=== PATIENT | male | born 1955 | race Caucasian/White ===

== ENCOUNTER 2022-10-19 07:37 | Outpatient (REF) | payer MEDICARE, SELFPAY ==
[2022-10-19 11:17] LABS: MANUAL DIFF FLAG NO
[2022-10-19 11:47] LABS: Basophils Percent Auto 0.5 % (0-2); Eosinophils Absolute Auto 0.2 X10*3/uL (0.0-0.4); Eosinophils Percent Auto 2.8 % (0-4); Hematocrit 41.6 % (42.0-52.0); Hemoglobin 13.6 g/dl (14.0-18.0); Imm Gran Abs Auto 0.05 X10*3/uL (0.00-0.03); Imm Gran Pct Auto 0.8 % (0.0-0.4); Lymphocytes Absolute Auto 1.7 X10*3/uL (1.2-4.9); Lymphocytes Percent Auto 26.4 % (20-40); Mean Corpuscular HGB Conc 32.7 g/dl (31.0-36.0); Mean Corpuscular Hemoglobin 29.2 pg (27.0-33.0); Mean Corpuscular Volume 89.5 fL (80.0-98.0); Mean Platelet Volume 10.6 fL (9.4-12.4); Monocytes Absolute Auto 0.5 X10*3/uL (0.1-1.2); Monocytes Percent Auto 8.2 % (2-11); Neutrophils Percent Auto 61.3 % (45-73); Platelet Count 223 X10*3/uL (160-400); Red Blood Count 4.65 X10*6/uL (4.60-5.80); Red Cell Distribution Width 13.7 % (11.0-16.0); White Blood Count 6.5 X10*3/uL (4.8-10.8)
[2022-10-19 12:36] LABS: Alanine Aminotransferase 15 U/L (0-40); Albumin Level 3.8 g/dL (3.5-5.0); Alkaline Phosphatase 12 U/L (39-117); Anion Gap 10 (12-20); Aspartate Amino Transferase 18 U/L (5-37); Bilirubin Total 1.1 mg/dL (0.0-1.0); Blood Urea Nitrogen 26 mg/dL (9-16); Calcium 8.8 mg/dL (8.4-10.2); Carbon Dioxide 29 mmol/L (22-29); Chloride 105 mmol/L (96-108); Cholesterol 208 mg/dL; Estimated Glomerular Filt Rate 59; Glucose Fasting 113 mg/dL (60-99); HDL Cholesterol 40 mg/dL; LDL Cholesterol Calculated 145 mg/dl; Potassium 4.3 mmol/L (3.3-5.1); Sodium 140 mmol/L (135-145); Total Protein 6.3 g/dL (6.5-8.0); Triglycerides 115 mg/dL
[2022-10-19 13:27] LABS: Uric Acid 9.4 mg/dL (3.4-7.0)
== END 2022-10-19 07:38 | disposition home or self-care (01) ==
LOC: HO.MANLDS 07:37
PROVIDERS: Visit Provider Physician Assistant
DX: M10.011 Idiopathic gout, right shoulder (principal); I10 Essential (primary) hypertension
CPT/HCPCS: 36415; 80053; 80061; 84550; 85025

== ENCOUNTER 2024-05-09 11:25 | Outpatient (REF) | payer MEDICARE, SELFPAY ==
[2024-05-09 14:06] LABS: Alanine Aminotransferase 21 U/L (0-40); Albumin Level 3.8 g/dL (3.5-5.0); Alkaline Phosphatase 19 U/L (39-117); Anion Gap 12 (12-20); Aspartate Amino Transferase 25 U/L (5-37); Bilirubin Total 1.6 mg/dL (0.0-1.0); Blood Urea Nitrogen 18 mg/dL (9-16); Carbon Dioxide 30 mmol/L (22-29); Chloride 104 mmol/L (96-108); Estimated Glomerular Filt Rate > 60; Glucose Random 99 mg/dL (60-115); Potassium 4.5 mmol/L (3.3-5.1); Sodium 141 mmol/L (135-145); Total Protein 6.8 g/dL (6.5-8.0); Uric Acid 8.2 mg/dL (3.4-7.0)
== END 2024-05-09 11:26 | disposition home or self-care (01) ==
LOC: HO.MANLDS 11:25
PROVIDERS: Visit Provider Physician Assistant
DX: M1A.0720 Idiopathic chronic gout, left ankle and foot, without tophus (tophi) (principal)
CPT/HCPCS: 36415; 80053; 84550

== ENCOUNTER 2024-10-03 10:06 | Outpatient (REF) | payer MEDICARE, SELFPAY ==
--- OUTSIDE RECORDS SUMMARY | 2024-10-03 11:52 | XMS_ITS | Continuity of Care Document ---
Author Name [facility] Organization [facility] Care Team Providers Care Can Intake Worker Name Role Phone [facility] Unavailable Unavailable Problems Combined list of problems from Department of Defense and Veterans Affairs facilities. It does not include entries that were removed or entered in error. Problem Status Onset Date Problem Type Date of Resolution Comments Source Eczema Active Condition [facility] Hearing loss Active [facility] [place] [facility] Hypertension Active Condition [facility] [place] [facility] Mor[facility] obesity Active Condition [facility] [place] [facility] Obstructive sleep apnea of adult Active Condition [facility] [place] [facility] Paroxysmal atrial fibrillation Active Condition December 20, 2017 Entered By: CLAUDIA BRITO Comment: on rate control, [facility] [place] [facility] Diagnosis: ICD-10-CM Z46.1 Encounter for fitting and adjustment of hearing aid Active Diagnosis [facility] [place] [facility] Medications Combined list of outpatient medications from Department of Defense and Veterans Affairs facilities.Medications provided include 1) outpatient medications from the last 15 months, and 2) patient-reported medications. Medication Details Route Status Patient Instructions Prescription Expires Prescription Number Last Dispense Date Ordering Provider Order Date Order Qty Source LISINOPRIL 10MG TAB TAKE ONE TABLET BY MOUTH DAILY ORAL ACTIVE Monique BRITO ICOLE 2015 [facility] [place] [facility] METOPROLOL TARTRATE 25MG TAB TAKE ONE TABLET BY MOUTH TWICE DAILY ORAL ACTIVE Monique BRITO ICOLE 2017 [facility] [place] [facility] Immunizations Combined list of available immunizations from the Department of Defense and Veterans Affairs facilities. Immunization Series Date Given Administered By Site Reaction Lot Number CVX Code Drug Apron Operator Status Comments Source INFLUENZA, SEASONAL, INJECTABLE 2017 141 complet ed [facility] [place] [facility] INFLUENZA, SEASONAL, INJECTABLE 2016 141 complet ed Site: Left Deltoid [facility] TDAP 2016 115 complet ed Site: Right Deltoid [facility] FLU,3 YRS (HISTORICAL) 2015 88 complet ed Site: Right Deltoid [facility] [place] [facility] Encounters Combined list of: 1) Encounters from Department of Veterans Affairs facilities going backup to the last 18 months, not all VA inpatient encounters are included; 2) Encounters from the Department of Defense facilities going backup to 280 months. Location Location Details Encounter Type Encounter Number Reason For Visit Attending Provider ADM Date DC Date Status Disposition Source [facility] HEARING AID FITTING/CH ECKING [id number] Diagnos is: ICD-10- CM Z46.1 Encount er for fitting and adjustm ent of hearing aid Stefan DAMON 04/19 [facility] [place] [facility] Social History Combined list of available smoking, tobacco, and other social history from Department of Defense and Veterans Affairs facilities. Social History Type Response Date Comment Sourc e Tobacco smoking status NHIS VA-TOBACCO QUIT 5 TO < 15 YRS 01/11/2019 [facility] [place] [facility] History of tobacco use AR-TOBACCO FORMER USER 01/11/2019 [facility] [place] [facility] History of tobacco use QUIT TOBACCO USE > 7 YEARS AGO 12/20/2017 [facility] [place] [facility] History of tobacco use QUIT TOBACCO USE 1-7 YEARS AGO 04/26/2016 [facility] [place] [facility]
--- OUTSIDE RECORDS SUMMARY | 2024-10-03 11:52 | XMS_ITS ---
Author Name [facility] Address [address] [place] [id number] Care Team Providers Care Video Effects Editor Name Role Phone ARNALDO JAUREGUI Primary Care Provider Unavailab le Insurance Providers: All historical and current Section Date Range: From patient's date of to the date document was created. This section includes the names of all active insurance providers for the patient. Insurance Provider Type of Coverage Plan Name Start of Policy Coverage End of Policy Coverage Group Number Member ID Insurance Provider's Telephone Number Policy Wynn's Name Patient's Relationship to Policy Wynn [facility] MEDICARE [facility] MEDEX CORE Apr 01, 2021 [id number] DAMASO SCRUGGS PATIENT MEDICARE (WNR) MEDICARE (M) PART A Apr 01, 2021 PART A [id number] DAMASO SCRUGGS PATIENT MEDICARE (WNR) MEDICARE (M) PART B Apr 01, 2021 PART B [id number] DAMASO SCRUGGS PATIENT Selected Encounter This section includes the information on record at OR for the Encounter. Date/Time Encounter Type Encounter Description Reason Provider Source Apr 19, 2024 08:00 AM HEARING AID FITTING/CHECKIN G AUDIOLOGY ICD-10-CM Z46.1 Encounter for fitting and adjustment of hearing aid GWENDOLYN DAMON Encounter Template Text not used by [facility] Assessments - Encounter Diagnoses This section includes the primary and secondary diagnoses documented for the Encounter. Date/Time Primary/Secondary Diagnosis Diagnosis Name Provider Source Apr 19, 2024 08:10 AM PRIMARY Encounter for fitting and adjustment of hearing aid GWENDOLYN DAMON [facility] Apr 19, 2024 08:10 AM SECONDARY Sensorineural hearing loss, bilateral GWENDOLYN DAMON [facility] Social History: Smoking Status (Most current) and Tobacco Use (All prior to encounter date) This section includes the most current, and the historical, smoking and tobacco- related health factors from the OR facility where the Encounter took place. Current Smoking Status This section includes the most current smoking, or tobacco-related health factor, from the OR facility where the Encounter took place. Date/Time Current Smoking Status Comment Facil ity Jan 11, 2019 09:58 AM OR-TOBACCO QUIT 5 TO < 15 YRS [facility] Tobacco Use History This section includes a history of the smoking, or tobacco-related health factors, that were collected on or before the date of the Encounter. The data comes from the [place] facility where the Encounter took place. Date/Time Smoking Status/Tobacco Use Comment F acility Jan 11, 2019 09:58 AM OR-TOBACCO QUIT 5 TO < 15 YRS [facility] December 20, 2017 01:12 PM QUIT TOBACCO USE > 7 YEARS AGO [facility] December 20, 2017 01:12 PM V1-QUIT TOBACCO US E > 1 YEAR AGO [facility] Apr 26, 2016 11:01 AM QUIT TOBACCO USE 1 -7 YEARS AGO [facility] Encounter Notes: All associated encounter notes This section contains the clinical notes associated to the Encounter. Date/Time Encounter Note(s) Provider Source Apr 19, 2024 07:42 AM AUDIOLOGY E & M NO TE: [facility] [employer] [facility] TITLE: AUDIOLOGY CLINIC STANDARD TITLE: AUDIOLOGY E & M NOTE DATE OF NOTE: APR 19, 2024@07:42 ENTRY DATE: APR 19, 2024@07:42:20 AUTHOR: GWENDOLYN DAMON EXP COSIGNER: URGENCY: STATUS: COMPLETED [place] has a history of bilateral sensorineural hearing loss. He was seen on 04-19-24 for hearing aid follow up regarding his Stefano BTEs. He reports they need maintenance and that the right may not be working. Attempt to connect to WILL failed for the right, but was successful for the left. A firmware update is needed based on the left aid read out. Despite troubleshooting, the right aid would not connect and remained . Both aids were sent in for repair, will ship to [place] [facility]. He will use spare hearing aids in the meantime. /shayla/ Dora GREGORIO, [facility]-A STAFF PARTS TECHNICIAN Signed: 04/19/2024 08:12 GWENDOLYN DAMON [facility]
--- OUTSIDE RECORDS SUMMARY | 2024-10-03 11:52 | XMS_ITS | Data Portability ---
Author Organization [facility] Service Address [address] [place] [address] Assessment Encounter Date Assessment Date Assessment LastModified by Organization Details LastModified Time 10/26/2023 10/26/2023 The patient denies little pleasure in activities they find enjoyable, feeling depressed, difficulties sleeping, feeling tired or having little energy, change in appetite, feeling guilty, overwhelmed or unmotivated. The patient denies suicidal ideation, thoughts of hurting themselves or others. Their mood is appropriate, they show good judgement and clear understanding of the conversation. They are orientated to time, place and person. They are not expressing any concerning thoughts or actions that would need further investigation and treatment for mental health. The patient denies recent falls or recurrent falls. Denies instability, weakness, abnormal gait, or difficulties with movement. The patient wears correct, supportive shoes and is not otherwise severely visually impaired. The patient is full weight bearing and if using the assistance of a cane or walker feels supported and stable with the use of such devices. All medical conditions have been taken into account that may pose a risk for the patient for falls. Home janice, carpets and/or rugs do not pose a challenge for the patient. The patient has been educated about the use of vitamin D supplementation for bone health and prevention of hypotensive episodes that may increase risk for fall. All question and concerns were answered to the patient's satisfaction. [email or web address] Not available 10/26/2023 09:12:44 04/09/2024 04/09/2024 Patient agreed and verbally consents to this audio and video Telehealth appt via a secure platform [email or web address] Not available 04/09/2024 10:33:48 04/25/2024 04/25/2024 Patient agreed and verbally consents to this audio and video Telehealth appt via a secure platform [email or web address] Not available 04/25/2024 11:44:37 06/18/2024 06/18/2024 Patient agreed and verbally consents to this audio and video Telehealth appt via a secure platform [email or web address] Not available 06/18/2024 11:10:36 Plan of Treatment Reminders Order Date Submit Date Provider Last Modified By Organization Details Last Modified Time Details Appointments NEW PROBLEM 15 2024 09:45A M MEKA JENSEN Not available Not available Not available Lab CMP, serum or plasma 2024 025 [facility], [address] [place] [address], [id number], 10/03/2024 09:54:05 CBC w/ auto diff 2024 025 [facility], [address] [place] [address], [id number], 10/03/2024 09:54:05 magnesium , serum or plasma 2024 025 [facility], [address] [place] [address], [address], 10/03/2024 09:54:05 zinc, serum or plasma 2024 025 [facility], [address] [place] [address], [address], 10/03/2024 09:54:05 PTH (parathyr oid hormone), intact + calcium, serum or plasma 2024 025 [facility], [address] [place] [address], [address], 10/03/2024 09:54:05 ESR (erythroc yte sedimenta tion rate), blood 2024 025 [facility], [address] [place] [address], [address], 10/03/2024 09:54:05 C reactive protein, QN, serum or plasma 2024 025 [facility], [address] [place] [address], [address], 10/03/2024 09:54:05 CK (creatine kinase) isoenzyme s, serum 2024 025 [facility], [address] [place] [address], [address], 10/03/2024 09:54:05 uric acid, serum or plasma 2023 024 [facility], [address] [place] [address], [address], 04/25/2024 11:47:25 CMP, serum or plasma 2023 024 [facility], [address] [place] [address], [address], 05/10/2024 12:11:27 uric acid, serum or plasma 2023 024 [facility], [address] [place] [address], [address], 10/26/2023 09:11:21 Referral sleep medicine referral 2023 024 [facility], [address] [facility], [facility] [address], [place], [address], 06/19/2024 08:03:53 Procedures None recorded. Surgeries None recorded. Imaging XR, foot, 3 or more view 2024 025 [facility] Central Scheduling (Not Breast), [address] [facility], [place], [address], 10/03/2024 11:47:19 Medication Orders Zithromax Z-Benito 250 mg tablet 11/18/ 2024 03/05/2 025 [facility][id number], [address], [place], [id number], 10/03/2024 09:38:25 Medrol (Benito) 4 mg tablets in a dose pack 2023 025 [facility] #09232, [address] [place] [address], [id number], 10/03/2024 09:38:35 sildenafi l 100 mg tablet 2023 024 [facility] #55140, [address] [place] [address], [id number], 04/25/2024 11:48:05 amoxicill in 875 mg-potass ium clavulana te 125 mg tablet 2023 024 [facility] #[id number], [address] [place] [address], [id number], 04/25/2024 08:11:45 Patient TargetsNo targets recorded. Patient InstructionsNo instructions recorded. Reason for Referral Sleep Medicine Referral for Sleep apnea needs updated sleep study for new CPAP Referring Physician: Nieves Blancas, Internal Medicine, Encounter Date: 06/18/2024 Results Created Date Observation Date Name Description Value Unit Range Abnormal Flag Note LastModifiedBy Organization Detail LastModifiedTime 09/28/19 24 09/27/2023 XR, chest , 2 view No observ ation record ed. [email or web address] [address], [address], 09/28/2023 11:00:09 10/29/1910/28/2023 CT, chest , w/wo contr ast No observ ation record ed. [email or web address] [address], [address], 10/31/2023 08:22:42 Result Notes None recorded. Problems Name Problem SNOMED Code Status Onset Date Resolution Date Notes Provider Name and Address Organization Details Recorded Time Body mass index 30+ - obesity 557153022 [facility] Eczema 41110806 Active 2022 hands and feet MEKA JENSEN [address] [place], [address], [facility] 3 11:02:21 Polyp of colon 19502243 Active 2022 Arianna pires [facility] 3 11:27:55 Paroxysm al atrial fibrilla tion 830271148 [facility] 11:28:14 Sleep apnea 47731566 Active 2022 uses CPAP MEKA JENSEN [address] [place], [address], [facility] 3 11:03:12 Tinnitus 86698601 [facility] 11:28:39 Gout 57140923 Active 2022 right big toe MEKA JENSEN [address] [place], [address], [facility] 3 10:21:18 Essentia l hyperten matilde 64157237 Active 2022 MEKA JENSEN [address] [place], [address], [facility] 3 11:01:22 Tinnitus 85463719 Active 2022 MEKA JENSEN [address] [place], [address], [facility] 3 11:04:46 Panic attack 637904863 Active 2022 MEKA JENSEN [address] [place], [address], [facility] 3 09:25:44 Spasm 90697886 Active 2022 MEKA JENSEN [address] [place], [address], [facility] 3 09:29:32 Pain in right foot 96144525849 9107 Active 2022 MEKA JENSEN [address] [place], [address], [facility] 3 09:31:09 Pneumoni a 288162776 Completed 202308/22/2023 MEKA JENSEN [address] [place], [address], [facility] 4 10:35:48 Wheezing 66547246 Active 2023 Long Bazzi DO [address] [place], [address], [facility] 4 13:38:23 Pneumoni a 700434076 Active 2023 MEKA JENSEN [address] [place], [address], [facility] 4 10:35:48 Lung mass 482536746 Active 2023 MEKA JENSEN [address] [place], [address], [facility] 4 11:00:31 Chronic gouty arthriti s 73191869 Active 2023 MEKA JENSEN [address] [place], [address], [facility] 4 09:24:39 Contact dermatit is caused by urushiol from [facility] celso 091361412 Active 2023 MEKA JENSEN [address] [place], [address], [facility] 4 15:47:50 Acute bacteria l sinusiti s 39172005 Active 2023 MEKA JENSEN [address] [place], [address], [facility] 4 10:33:59 Erectile dysfunct ion 425406091 Active 2023 MEKA JENSEN [address] [place], [address], [facility] 4 11:46:33 Acute sinusiti s 89315866 Active 2023 MEKA JENSEN [address] [place], [address], [facility] 4 11:09:22 Pain in right heel 78455426531 [address]174 Active 2024 MEKA JENSEN [address] [place], [address], [facility] 5 09:49:45 Strain of hamstrin g muscle 28195182833 4 Active 2024 MEKA JENSEN [address] [place], [address], [facility] 5 09:50:02 Problem Notes None recorded. Procedures Surgical History Date Name Laterality Status Provider Name and Address Organization Details Recorded Time Hand tendon/muscle transfer completed MEKA JENSEN [address] [place], [address], [facility] 10/07/2022 11:10:10 Cholecystectomy completed MEKA HERNANDES [address] [place], [address], [facility] 10/07/2022 11:10:21 Imaging Results Imaging Date Name Status LastModified by Organiz ation Details LastModified Time 09/27/2023 [facility] [address], [address], 09/28/2023 11:00:09 10/28/2023 CT, chest, w/wo contrast completed memo [address], [place], [address], 10/31/2023 08:22:42 Procedure Notes None recorded. Medical Equipment None Reported. Allergies No known drug allergies Medications Name Sig Start Date Stop Date Status Note LastModified by Organization Details LastModified Time atorvastati n 40 mg tablet TAKE 1 TABLET DAILY active Not Available Not Available No t Available prednisone 10 mg tablet 50 mg x 2 days40 mg x 2 days30 mg x 2 days20 mg x 2 days10 mg x 2 days 04/25 completed Not Available Not Available Not Available albuterol sulfate 2.5 mg/3 mL (0.083 %) solution for nebulizatio n USE 3 ML VIA NEBULIZER THREE TIMES DAILY NEEDED active Not Available Not Available No t Available azithromyci n 250 mg tablet TAKE 2 TABLETS (500 MG) BY ORAL ROUTE ONCE DAILY FOR 1 DAY THEN 1 TABLET (250 MG) BY ORAL ROUTE ONCE DAILY FOR 4 DAYS 10/03 completed Not Available Not Available Not Available cyanocobala min (vit B-12) 1,000 mcg tablet Take 1 tablet every day by oral route. active Not Available Not Available No t Available allopurinol 100 mg tablet 10/20 completed Not Available Not Available Not Available aspirin 81 mg tablet,hoda yed release Take 1 tablet every day by oral route. active Not Available Not Available No t Available sildenafil 100 mg tablet TAKE 1 TABLET BY MOUTH EVERY DAY FOR 8 DAYS active Not Available Not Available No t Available alprazolam 0.5 mg tablet Take 1 tablet every day by oral route for 14 days. 04/25 completed Not Available Not Available Not Available lisinopril 30 mg tablet TAKE 1 TABLET DAILY active Not Available Not Available No t Available codeine 10 mg-guaifene sin 100 mg/5 mL oral liquid TAKE 10 ML BY MOUTH EVERY 4 HOURS FOR 7 DAYS 09/06 completed Not Available Not Available Not Available allopurinol 300 mg tablet TAKE 1 TABLET DAILY 10/25 completed Not Available Not Available Not Available levofloxaci n 750 mg tablet TAKE 1 TABLET BY MOUTH EVERY DAY FOR 10 DAYS 09/06 completed Not Available Not Available Not Available methylpredn isolone 4 mg tablets in a dose pack Take 1 dose pk by oral route. 10/03 completed Not Available Not Available Not Available albuterol sulfate HFA 90 mcg/actuati on aerosol inhaler INHALE 2 PUFFS BY MOUTH EVERY 4 HOURS NEEDED active Not Available Not Available No t Available colchicine 0.6 mg tablet 10/20 completed Not Available Not Available Not Available amoxicillin 875 mg-sushant m clavulanate 125 mg tablet TAKE 1 TABLET BY MOUTH EVERY 12 HOURS FOR 10 DAYS 04/25 completed Not Available Not Available Not Available metoprolol tartrate 25 mg tablet TAKE 1 TABLET TWICE A DAY active Not Available Not Available No t Available [employer] System USE DIRECTED active Not Available Not Available No t Available allopurinol 200 mg tablet TAKE 1 TABLET BY MOUTH EVERY DAY 10/22 completed Not Available Not Available Not Available Vitals Date Recorded Body height Body mass index (BMI) Body weight Heart rate Oxygen saturation Oxygen saturation in Arterial blood by Pulse oximetry Systolic blood pressure Diastolic blood pressure Provider Name and Address Organization Details Last Updated DateTime 4 185.42 cm 39.1 kg/m2 164935. 34 g 52 /min 99 % 99 % 130 mm[Hg] 80 mm[Hg] Carolyn Taylor [facility] 4 08:57:58 Date Recorded Body height Body mass index (BMI) Body weight Heart rate Oxygen saturation Oxygen saturation in Arterial blood by Pulse oximetry Systolic blood pressure Diastolic blood pressure Provider Name and Address Organization Details Last Updated DateTime 5 185.42 cm 40.8 kg/m2 692326. 04 g 52 /min 99 % 99 % 138 mm[Hg] 84 mm[Hg] Ariel Smart [facility] 5 09:39:48 Social History Question Answer Notes LastModified by Organizat ion Details LastModified Time Tobacco Smoking Status Former Smoker Arianna pires [facility] 10/05/2022 11:29:04 Do You Have An Advance Directive? No Information not available 10/07/2022 What Is Your Level Of Alcohol Consumption? Moderate Depends On The Day (three Times A Week, Has Couple Beers) Information not available 10/07/2022 Are You Blind Or Do You Have Difficulty Seeing? No Information not available 10/07/2022 What Is Your Level Of Caffeine Consumption? Moderate Information not available 10/07/2022 In The 14 Days Before Symptom Onset, Have You Had Close Contact With A Laboratory-confi rmed COVID-19 While That Case Was Ill? No Information not available 10/07/2022 In The 14 Days Before Symptom Onset, Have You Had Close Contact With A Person Who Is Under Investigation For COVID-19 While That Person Was Ill? No Information not available 10/07/2022 Have You Been To An Area Known To Be High Risk For COVID-19? No Information not available 10/07/2022 Are You Currently Employed? Yes Information not available 10/07/2022 Are You Deaf Or Do You Have Serious Difficulty Hearing? No Information not available 10/07/2022 What Type Of Diet Are You Following? REGULAR Chicken And Vegetables No Salt Information not available 10/07/2022 What Is The Highest Grade Or Level Of School You Have Completed Or The Highest Degree You Have Received? 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 7 Information not available 10/07/2022 On Those Days That You Engage In Moderate To Strenuous Exercise, How Many Minutes, On Average, Do You Exercise? 7 Information not available 10/07/2022 Are There Any Guns Present In Your Home? No Information not available 10/07/2022 What Was The Date Of Your Most Recent Tobacco Screening? 10/03/2024 [email or web address] Information not available 10/03/2024 How Many Children Do You Have? 3 3 Bio Kids, 3 Adopted Kids Information not available 10/07/2022 Do You Use Your Seat Belt Or Car Seat Routinely? Yes Information not available 10/07/2022 Are You Sexually Active? Yes Information not available 10/07/2022 Do You Have Smoke And Carbon Monoxide Detectors In Your Home? Yes Information not available 10/07/2022 At What Age Did You Start Smoking Tobacco? 21 Information not available 10/07/2022 Are You Passively Exposed To Smoke? No Information not available 10/07/2022 Do You Feel Stressed (tense, Restless, Nervous, Or Anxious, Or Unable To Sleep At Night)? [id number] Information not available 10/07/2022 Do You Use Any Illicit Or Recreational Drugs? No Information not available 10/07/2022 Do You Use Sunscreen Routinely? No Information not available 10/07/2022 How Many Years Have You Smoked Tobacco? 20 Information not available 10/07/2022 Do You Or Have You Ever Used Any Other Forms Of Tobacco Or Nicotine? No Information not available 10/07/2022 Sex: Male Functional Status Question Answer Note LastModified by Organizat ion Details LastModified Time Do you have difficulty walking or climbing stairs? No Information not available 10/07/2022 Are you able to walk? YESWOREST Information not available 10/07/2022 Do you have difficulty doing errands alone? No Information not available 10/07/2022 Are you able to care for yourself? Yes Information not available 10/07/2022 Do you have difficulty dressing or bathing? No Information not available 10/07/2022 What is your exercise level? Occasional tries to walk every day and 4 miles on the weekends Information not available 10/07/2022 Mental Status Question Answer Note LastModified by Organization D etails LastModified Time Do you have difficulty concentrating, remembering or making decisions? No Information no t available 10/07/2022 Family History Relationship Description Onset Age of this Age Resolved Age Notes LastModified by Organization Details LastModified Time Father No current problems or disability [email or web address] Not available 10/07 11:05:25 Mother No current problems or disability [email or web address] Not available 10/07 11:05:25 Medical History No medical history recorded. Past Encounters Encounter ID Performer Location Encounter Start Date Encounter Closed Date Diagnosis/Indication Diagnosis SNOMED-CT Code Diagnosis ICD10 Code Diagnosis Note [id number] MEKA JNESEN [facility] [address] [facility], [place] [address] 10/07/2022 10:42:58 10/07/2022 11:23:31 Gout 34667277 M10.011 needs refill Essential hypertension 33516111 I10 needs refill of his meds Paroxysmal atrial fibrillation 776199767 I48.0 stable on metoprolol (sees cardio at [facility]) Tinnitus 34891789 H93.13 [place] [id number] MEKA JENSEN [facility] [address] [facility], [place] [address] 04/11/2023 09:02:13 04/11/2023 10:51:36 Essential hypertension 96050002 I10 needs refill of his meds Gout 57282283 M10.011 needs refill Paroxysmal atrial fibrillation 570430461 I48.0 stable on metoprolol (sees cardio at [facility]) Panic attack 724930733 F 41.0 will start as needed Spasm 72232026 R25.2 IT band friction syndrome vs back instabilit ydiscussed PT maneuvers to use at home Pain in right foot 94911 12099 59409 M79.671 will set up with XR to r/o microfract ure [id number] Long Bazzi DO [facility] Internal Medicine [address] [facility],[place] [address] 08/10/2023 14:09:20 08/10/2023 14:51:30 Pneumonia 479854343 J18.9 asked him to get a cxr margo to be certain this is pneumonias tart levoflox cough syrup and [id number] Long Bazzi [facility] [address] [facility] [place] [address] 08/22/2023 13:21:29 08/22/2023 13:54:46 Atrial fibrillation 64204227 I48.0 Essential hypertension 89254405 I10 much better heart rate better Pneumonia 326941277 J18. 9 RIGHT MID LOBE PNEUMONIA now resolved feels markedly betterO2 sat now nl at 98% Wheezing 51620440 R06.2 will cont to use nebulizer when needed [id number] MEKA JENSEN [facility] Medicine [address],[place] [address] 09/06/2023 09:48:42 09/06/2023 13:58:55 Pneumonia 064997615 J17 will re-do XR to check for resolution since his symptoms have not abatedstar t on steroid for residual inflammati onwill fu with XR results [id number] MEKA JENSEN [facility] Medicine [address],[place] [address] 09/27/2023 09:31:28 09/28/2023 16:29:55 Pneumonia 881420268 J17 fu after XR comes in tomorrow [id number] MEKA JENSEN [facility] Medicine [address],[place] [address] 10/26/2023 08:49:59 10/26/2023 10:53:49 Lung mass 924324917 R91.[address] coming up this week Gout 56280460 M10.011 is going to try to wean off the medication will check his levels after a few weeks off the medicaton Pneumonia 068690772 J17 symptoms have resolved Chronic go uty arthritis 08861017 M1A.0720 stable [id number] MEKA JENSEN [facility] Medicine [address] [facility] [address],[place] [address] 04/09/2024 09:16:44 04/09/2024 11:19:01 Acute bacterial sinusitis 20168536 J01.11 start augmentin, was the most successful for the patient, fu already scheduling for 04/25 for regular appt [id number] MEKA JENSEN [facility] [address],[place] [address] 04/25/2024 08:10:04 04/25/2024 11:59:52 Essential hypertension 74830185 I10 BP is stable at home, better with Chronic go uty arthritis 02220096 M1A.0720 stable Erectile dysfunction 860 903524 F52.21 start on sildenafil [id number] MEKA JENSEN [facility] [address],[place] [address] 06/18/2024 09:43:28 06/18/2024 11:47:23 Sleep apnea 89783746 G47.31 needs new CPAP machine, will require new test, sent in for new test and then will submit for new CPAP Acute sinusitis 45957634 J01.01 start on z benito and medrol [id number] MEKA JENSEN [facility] [address],[place] [address] 10/03/2024 09:32:09 10/03/2024 09:57:46 Pain in right heel 2309097364 485448 M79.671 probs a bone spur given location and symptoms Strain of hamstring muscle 3573957879 04 S76.311A ?tendinopa thy vs strain vs def Pain in left foot 688387 3157 03886 M79.672 Health Concerns Section Related Observation LastModified by Organization Detai ls LastModified Time None Recorded Concern Status LastModified by Organization Details LastModified Time None Recorded Advance Directives Directive N: Payers Encounter Date Sequence Insurance Name Policy Number Policy Wynn Covered Member ID Wynn Member ID Guarantor Name 10/26/2023 1 [place] Javed S Tauscher [id number] [facility] 10/26/2023 2 [place] [id number] Javed S Tauscher [id number] Javed Tauschkaylene 04/09/2024 1 [place] Javed S Tauscher [id number] [facility] 04/09/2024 2 [place] [id number] Javed S Tauscher [id number] Javed Tauschkaylene 04/25/2024 1 [place] Javed S Tauscher [id number] [facility] 04/25/2024 2 [place] [id number] Javed S Tauscher [id number] Javed Tauschkaylene 06/18/2024 1 [place] [facility] Javed Carr [id number] Javed Carr 06/18/2024 2 [place] [id number] Javed Carr [id number] Javed Carr 10/03/2024 1 [place] [facility] Javed Carr [id number] Javed Carr 10/03/2024 [address] [facility] [id number] Javed Carr [id number] Javed Carr Notes Date Note Type Note Provider Name and Address Organization Details Recorded Time 10/26/19 24 text/htm l f/u chest pain the patient has had recurrent pneumoniathe patient has some mild dry cough intermittentlybreathing has been good, no chest pain at alleating and sleeping welldenies fever has his CT scheduled for the week to look into the spot the XR picked up on his lung and because he has pna three times patient has been eating supervisor housecleaner, has not had a drink in months, wanted to try off the allopurinol to see how he doesagreed to try him off it, uric acid level set up for a few weeks after he discontinues it does have some reactive arthritic changes to his big toe, left side from previous gout attacksotherwise no pain or swelling will fu with pt after CT and lab work MEKA JENSEN [address] [place] [address], [place], [id number], [facility] 10/26/2023 09:24:55 04/09/20 24 text/htm l c/o sinus infection The patient is participating in this appointment via telemedicine communication with a phone call/video calling service ([email or web address])The patient consents to use of these platforms in place of an in-person appointment due to either sick symptoms the patient is presenting with or current office closure due to COVID exposure in order to keep our office staff and patients safe The patient presents to the office today with concerns of sick symptoms including sinus pain and pressure, subjectively feverish, rhinorrhea denies chest pain, no sob The symptoms started originally middle of last of weekThe patient reports exposure to friends who are sickThe patient symptoms mainly involves the sinus pressure Pertinent comorbidities include recurrent pneumonia this winter, had three episodes, confirmed by CT, was eventually treated successfully but mindful of this The patient symptoms are alleviated by restThe patient symptoms are exacerbated by cold air, pollen The patient has tested for COVID-19 and the results was negative MEKA JENSEN [address] [place], [id number], [facility] 04/09/2024 10:38:23 04/25/20 24 text/htm l 6 mos f/u The patient is participating in this appointment via telemedicine communication with a phone call/video calling service (Doxy)The patient consents to use of these platforms in place of an in-person appointment due to either sick symptoms the patient is presenting with or current office closure due to COVID exposure in order to keep our office staff and patients safe HTN: stable gout: recheck uric acid levelprinted lab work to give to lab pna: finally resolved, feeling much betterback to hiking and walking without issueshis BP is going back down now that he has been more active would like to try a med for EDdiscussed optionshad been on sildenafil 100 mg by his previous PCP that workedwill prescribe and go from there based on response MEKA JENSEN [address] [place], [address], [facility] 04/25/2024 11:51:54 06/18/20 24 text/htm l c/o sinus The patient is participating in this appointment via telemedicine communication with a phone call/video calling service (Doxy)The patient consents to use of these platforms in place of an in-person appointment due to either sick symptoms the patient is presenting with or current office closure due to COVID exposure in order to keep our office staff and patients safe The patient presents to the office today with concerns of sick symptoms including sinus pressure, sinus pain, nasal congestion, eye pain and ear pressure The symptoms started originally about two to three days agoThe patient reports exposure to co workersThe patient symptoms mainly involves the sinus and eye pain Pertinent comorbidities include had pneumonia last year that lingered for months before we were able to completely treat it The patient symptoms are alleviated by n/aThe patient symptoms are exacerbated by activity, tried a nasal wash without great success The patient has tested for COVID-19 and the results was negative MEKA JENSEN [address] [place], [phone], [facility] 06/18/2024 11:13:55 10/04/19 25 text/htm l c/o right foot pain and bilateral hamstrings the patient has right foot pain, bottom of the heelthe patient only gets the pain walking, feels like he's walking on somethingthe patient reports he has tried new shoes and inserts but it hasn't helpedleft foot is fine the patient reports cramping of the hamstrings bilaterally and burning sensationstates he feels like he is walking backwards down hill like when he hikeshasn't been hiking recently pain is only present with walking, standingno swelling or redness last bw through specialist was normal, but no testing of mag, D, calcium, CKno back or knee paindenies numbness or tingling no recent trauma or injury hamstrings feel tight MEKA JENSEN [address] [place], [address], [facility] 10/03/2024 09:57:45
[2024-10-03 13:20] LABS: MANUAL DIFF FLAG NO
[2024-10-03 13:36] LABS: Basophils Percent Auto 0.4 % (0-2); Eosinophils Absolute Auto 0.2 X10*3/uL (0.0-0.4); Hematocrit 41.7 % (42.0-52.0); Hemoglobin 13.8 g/dl (14.0-18.0); Imm Gran Abs Auto 0.02 X10*3/uL (0.00-0.03); Imm Gran Pct Auto 0.3 % (0.0-0.4); Lymphocytes Absolute Auto 1.8 X10*3/uL (1.2-4.9); Lymphocytes Percent Auto 26.2 % (20-40); Mean Corpuscular HGB Conc 33.1 g/dl (31.0-36.0); Mean Corpuscular Volume 90.7 fL (80.0-98.0); Mean Platelet Volume 10.6 fL (9.4-12.4); Monocytes Absolute Auto 0.7 X10*3/uL (0.1-1.2); Monocytes Percent Auto 9.5 % (2-11); Neutrophils Absolute Auto 4.2 x10*3/uL (2.0-8.3); Neutrophils Percent Auto 60.6 % (45-73); Platelet Count 216 X10*3/uL (160-400); Red Cell Distribution Width 13.7 % (11.0-16.0); White Blood Count 6.9 X10*3/uL (4.8-10.8)
[2024-10-03 14:12] LABS: Erythrocyte Sedimentation Rate 11 MM/HR (0-15)
[2024-10-03 14:21] LABS: Alanine Aminotransferase 25 U/L (0-40); Albumin Level 3.9 g/dL (3.5-5.0); Alkaline Phosphatase 14 U/L (39-117); Anion Gap 11 (12-20); Aspartate Amino Transferase 30 U/L (5-37); Bilirubin Total 1.4 mg/dL (0.0-1.0); Blood Urea Nitrogen 25 mg/dL (9-16); Calcium 8.9 mg/dL (8.4-10.2); Carbon Dioxide 27 mmol/L (22-29); Chloride 107 mmol/L (96-108); Estimated Glomerular Filt Rate > 60; Glucose Random 96 mg/dL (60-115); Potassium 4.5 mmol/L (3.3-5.1); Sodium 140 mmol/L (135-145); Total Protein 7.2 g/dL (6.5-8.0)
[2024-10-03 14:25] LABS: Parathyroid Hormone Intact 139.5 pg/mL (8.7-77.1)
== END 2024-10-03 10:07 | disposition home or self-care (01) ==
LOC: HO.MANLDS 10:06
PROVIDERS: Visit Provider Internal Medicine
DX: S76.311A Strain of muscle, fascia and tendon of the posterior muscle group at thigh level, right thigh, initial encounter (principal)
CPT/HCPCS: 36415; 80053; 82550; 83735; 83970; 84630; 85025; 85652; 86140

== ENCOUNTER 2024-10-31 07:54 | Outpatient (REF) | payer MEDICARE, SELFPAY ==
--- OUTSIDE RECORDS SUMMARY | 2024-10-31 07:59 | XMS_ITS | Continuity of Care Document ---
Author Name [facility] Organization [facility] Care Team Providers Care Machinery Cleaner Name Role Phone [facility] Unavailable Unavailable Problems Combined list of problems from Department of Defense and Veterans Affairs facilities. It does not include entries that were removed or entered in error. Problem Status Onset Date Problem Type Date of Resolution Comments Source Eczema Active Condition [facility] Hearing loss Active [facility] Hypertension Active Condition [facility] Morbid obesity [facility] Obstructive sleep apnea of adult Active Condition [facility] [place] [facility] Paroxysmal atrial fibrillation Active Condition December 20, 2017 Entered By: CLAUDIA BRITO Comment: on rate control, no [facility] [place] Diagnosis: ICD-10-CM Z46.1 Encounter for fitting and adjustment of hearing aid Active Diagnosis [facility] [place] [facility] Medications Combined list of outpatient [...] DAILY ORAL ACTIVE Monique BRITO [place] 2015 [facility] [place] [facility] METOPROLOL TARTRATE 25MG TAB TAKE ONE TABLET BY MOUTH TWICE DAILY ORAL ACTIVE [facility] BRITO [place] [facility] Immunizations Combined list of available immunizations from the Department of Defense and Veterans Affairs facilities. Immunization Series Date Given Administered By Site Reaction Lot Number CVX Code Drug Weight Count Operator Status Comments Source INFLUENZA, SEASONAL, INJECTABLE 2017 141 complet ed [facility] [place] [facility] INFLUENZA, SEASONAL, INJECTABLE 2016 141 complet ed Site: Left Deltoid [facility] TDAP 2016 115 complet ed Site: Right Deltoid [facility] FLU,3 YRS (HISTORICAL) 2015 88 complet ed Site: Right Deltoid [facility] Encounters Combined list of: 1) [...] Status Disposition Source [facility] FITTING/CH ECKING 73094-9.63 [id number] Diagnos is: ICD-10- CM Z46.1 Encount er for fitting and adjustm ent of hearing aid Stefan DAMON 04/19 [facility] [place] Social History Combined list of available smoking, tobacco, and other social history from Department of Defense and Veterans Affairs facilities. Social History Type Response Date Comment Sourc e Tobacco smoking status NHIS VA-TOBACCO QUIT 5 TO < 15 YRS 01/11/2019 [facility] History of tobacco use RI-TOBACCO FORMER USER 01/11/2019 [facility] [place] History of tobacco use QUIT TOBACCO USE > 7 YEARS AGO 12/20/2017 [facility] History of tobacco use QUIT TOBACCO USE 1-7 YEARS AGO 04/26/2016 [facility]
--- OUTSIDE RECORDS SUMMARY | 2024-10-31 07:59 | XMS_ITS | Data Portability ---
Author Organization [facility] Service Address [address] [place] [address] Assessment Encounter Date Assessment Date Assessment LastModified [...] Organization Details Last Modified Time Details Appointments None recorded. Lab CMP, serum or plasma 2024 025 [facility], [address] [place] [address], [address], 09:54:05 CBC w/ auto diff 2024 025 [facility], [address] [place] [address], [address], 09:54:05 magnesium, serum or plasma 2024 025 [facility], [address] [place] [address], [place], [address], 5 09:54:05 zinc, serum or plasma 2024 025 [facility], [address] [place] [address], [place], [address], 08:36:18 PTH (parathyro id hormone), intact + calcium, serum or plasma 2024 025 [facility], [address] [place] [address], [place], [address], 5 09:54:05 ESR (erythrocy te sedimentat ion rate), blood 2024 025 [facility], [address] [place] [address], [address], 5 09:54:05 C reactive protein, QN, serum or plasma 2024 025 [facility], [address] [place] [address], [address], 5 09:54:05 CK (creatine kinase) isoenzymes , serum 2024 025 [facility], [address] [place] [address], [address], 5 09:54:05 uric acid, serum or plasma 2023 024 [facility], [address] [place] [address], [address], 4 11:47:25 CMP, serum or plasma 2023 024 [facility], [address] [place] [address], [address], 4 12:11:27 uric acid, serum or plasma 2023 024 [facility], [address] [place] [address], [address], 4 09:11:21 Referral sleep medicine referral 2023 024 [facility], [address], [address], 4 08:03:53 Procedures None recorded. Surgeries None recorded. Imaging XR, foot, 3 or more view 2024 025 [facility] Central Scheduling (Not Breast), [address] [place], [address], 5 08:43:55 Medication Orders Zithromax Z-Benito 250 mg tablet 2023 025 PHIL[facility] Not available 5 09:38:25 Medrol (Benito) 4 mg tablets in a dose pack 2023 025 [facility] Not available 5 09:38:35 sildenafil 100 mg tablet 2023 024 [facility] Not available 4 11:48:05 amoxicilli n 875 mg-potassi um clavulanat e 125 mg tablet 2023 024 [facility] Not available 4 08:11:45 Patient TargetsNo targets recorded. Patient InstructionsNo [...] 2 view No observ ation record ed. [address], [address], 09/28/2023 11:00:09 10/29/19 24 10/28/2023 CT, chest , w/wo contr ast No observ ation record ed. [email or web address] [place] [address], [address], 10/31/2023 08:22:42 10/05/19 25 10/03/2024 XR, foot, 3 or more view No observ ation record ed. [address], [address], 10/08/2024 11:16:27 Result Notes None recorded. Problems Name Problem SNOMED Code Status Onset Date Resolution Date Notes Provider Name and Address Organization Details Recorded Time Body mass index 30+ - obesity 188423180 Active 2022 Arianna pires [place] - [facility] 3 11:27:02 Eczema 44123318 Active 2022 hands and feet MEKA JENSEN [address] [place], [address], [facility] 3 11:02:21 Polyp of colon 78677467 Active 2022 Arianna pires, [facility] 3 11:27:55 Paroxysm al atrial fibrilla tion 496886820 Active 2022 Arianna pires, [facility] 3 11:28:14 Sleep apnea 30132296 Active 2022 uses CPAP MEKA JENSEN [address] [place], [address], [facility] 3 11:03:12 Tinnitus 14669389 [facility] 11:28:39 Gout 77710143 Active 2022 right big toe MEKA JENSEN [address] [place], [address], [facility] 3 10:21:18 Essentia l hyperten matilde 33088917 Active 2022 MEKA JENSEN [address] [place], [address], [facility] 3 11:01:22 Tinnitus 84128402 Active 2022 MEKA JENSEN [address] [place], [address], [facility] 3 11:04:46 Panic attack 819923780 Active 2022 MEKA JENSEN [address] [place], [address], [facility] 3 09:25:44 Spasm 32016267 Active 2022 MEKA JENSEN [address] [place], [address], [facility] 3 09:29:32 Pain in right foot 67105941255 9107 Active 2022 MEKA EJNSEN [address] [place], [address], [facility] 3 09:31:09 Pneumoni a 986227717 Completed 202308/22/2023 MEKA JENSEN [address] [place], [address], [facility] 4 10:35:48 Wheezing 87580019 Active 2023 Long Bazzi, [address] [place], [address], [facility] 4 13:38:23 Pneumoni a 487968639 Active 2023 MEKA JENSEN [address] [place] [address], [address], [facility] 4 10:35:48 Lung mass 642144928 Active 2023 MEKA JENSEN [address] [place] [address], [address], [facility] 4 11:00:31 Chronic gouty arthriti s 82288954 Active 2023 MEKA JENSEN [address] [place] [address], [address], [facility] 4 09:24:39 Contact dermatit is caused by urushiol from [facility] celso 019409276 Active 2023 MEKA JENSEN [address] [place] [address], [address], [facility] 4 15:47:50 Acute bacteria l sinusiti s 82356689 Active 2023 MEKA JENSEN [address] [place] [address], [address], [facility] 4 10:33:59 Erectile dysfunct ion 997949706 Active 2023 MEKA JENSEN [address] [place] [address], [address], [facility] 4 11:46:33 Acute sinusiti s 98780478 Active 2023 MEKA JENSEN [address] [place], [address], [facility] 4 11:09:22 Pain in right heel 57735436087 49[address] Active 2024 MEKA JESNEN [address] [place] [address], [address], [facility] 5 09:49:45 Strain of hamstrin g muscle 45950925289 4 Active 2024 MEKA JENSEN [address] [place] [address], [address], [facility] 5 09:50:02 Hyperpar athyroid ism 69449309 Active 2024 MEKA JENSEN [address] [place] [address], [address], [facility] 5 11:16:56 Muscle pain 01326242 Active 2024 MEKA JENSEN [address] [place] [address], [address], [facility] 5 14:02:48 Problem Notes None recorded. Procedures Surgical History Date Name Laterality Status Provider Name and Address Organization Details Recorded Time Hand tendon/muscle transfer completed MEKA JENSEN [address] [place] [address], [address], [facility] 10/07/2022 11:10:10 Cholecystectomy completed MEKA HERNANDES [address] [place] [address], [address], [facility] 10/07/2022 11:10:21 Imaging Results Imaging Date Name Status [facility]Modified by [facility] Details LastModified Time 09/27/2023 XR, chest, 2 view completed [email or web address] [facility] [address] [place], [address], 09/28/2023 11:00:09 10/28/2023 CT, chest, w/wo contrast completed [email or web address] [address], [address], 10/31/2023 08:22:42 10/03/2024 XR, foot, 3 or more view completed [email or web address] [address], [address], 10/08/2024 11:16:27 Procedure Notes None recorded. Medical Equipment None [...] completed Not Available Not Available Not Available meloxicam 15 mg tablet TAKE 1 TABLET BY MOUTH EVERY DAY WITH MEALS active Not Available Not Available No t Available cyanocobala min (vit B-12) 1,000 mcg [...] Not Available Not Available No t Available baclofen 20 mg tablet Take 1 tablet twice a day by oral route as needed for 14 days. 2024 active Not Available Not Available Not Avai lable alprazolam 0.5 mg tablet Take 1 tablet [...] Available Not Available Not Available amoxicillin 875 mg-potassiu m clavulanate 125 mg tablet TAKE 1 [...] Updated DateTime 4 185.42 cm 39.1 kg/m2 957521. 34 g 52 /min 99 % 99 % 130 mm[Hg] 80 mm[Hg] [facility] 4 08:57:58 Date Recorded Body height Body mass index (BMI) Body weight Heart rate Oxygen saturation Oxygen saturation in Arterial blood by Pulse oximetry Systolic blood pressure Diastolic blood pressure Provider Name and Address Organization Details Last Updated DateTime 5 185.42 cm 40.8 kg/m2 516997. 04 g 52 /min 99 % 99 % 138 mm[Hg] 84 mm[Hg] Ariel Smart [facility] 5 09:39:48 Social History Question Answer Notes LastModified by Organizat ion Details LastModified Time Tobacco Smoking Status Former Smoker Arianna pires [facility] 10/05/2022 11:29:04 Do You Have [...] Or The Highest Degree You Have Received? [id number] Information not available 10/07/2022 What Is Your [...] Anxious, Or Unable To Sleep At Night)? [id number] Information not available 10/07/2022 Do You Use [...] SNOMED-CT Code Diagnosis ICD10 Code Diagnosis Note [id number] MEKA JENSEN [facility] [address] [facility] [address] 10/07/2022 10:42:58 10/07/2022 11:23:31 Gout 77866675 M10.011 needs refill Essential hypertension 53670922 I10 needs refill of his meds Paroxysmal atrial fibrillation 027386722 I48.0 stable on metoprolol (sees cardio at [facility]) Tinnitus 26497254 H93.13 [place] [id number] MEKA JENSEN [facility] [address] [facility] [address] 04/11/2023 09:02:13 04/11/2023 10:51:36 Essential hypertension 94256745 I10 needs refill of his meds Gout 26458670 M10.011 needs refill Paroxysmal atrial fibrillation 331731123 I48.0 stable on metoprolol (sees cardio [facility]) Panic attack 828078259 F 41.0 will start as needed Spasm 59131727 R25.2 IT band friction syndrome vs back instabilit ydiscussed PT maneuvers to use at home Pain in right foot 037[address] 31874 M79.671 will set up with XR to r/o microfract ure [id number] Long Bazzi DO [facility] [address] [facility] [address] [address] 08/10/2023 14:09:20 08/10/2023 14:51:30 Pneumonia 465413978 J18.9 asked him to get a cxr margo to be certain this is pneumonias tart levoflox cough syrup and [id number] Long Bazzi, [facility] [address] [facility] [address] [address] 08/22/2023 13:21:29 08/22/2023 13:54:46 Atrial fibrillation 48996488 I48.0 Essential hypertension 42023795 I10 much better heart rate better Pneumonia 642218275 J18. 9 RIGHT MID LOBE PNEUMONIA now resolved feels markedly betterO2 sat now nl at 98% Wheezing 49555128 R06.2 will cont to use nebulizer when needed [id number] MEKA JENSEN [facility] [address] [facility] [address] [address] 09/06/2023 09:48:42 09/06/2023 13:58:55 Pneumonia 467482730 J17 will re-do XR to check for resolution since his symptoms have not abatedstar t on steroid for residual inflammati onwill fu with XR results [id number] MEKA JENSEN [facility] [address] [facility] [address] [address] 09/27/2023 09:31:28 09/28/2023 16:29:55 Pneumonia 131702008 J17 fu after XR comes in tomorrow [id number] MEKA JENSEN [facility] [address] [facility] [address] [address] 10/26/2023 08:49:59 10/26/2023 10:53:49 Lung mass 009165492 R91.[address] coming up this week Gout 97496462 M10.011 is going to try to wean off the medication will check his levels after a few weeks off the medicaton Pneumonia 517901103 J17 symptoms have resolved Chronic go uty arthritis 57916392 M1A.0720 stable [id number] MEKA JENSEN [facility] [address] [facility] [address] [address] 04/09/2024 09:16:44 04/09/2024 11:19:01 Acute bacterial sinusitis 89242051 J01.11 start augmentin, was the most successful for the patient, fu already scheduling for 04/25 for regular appt [id number] MEKA JENSEN [facility] [address] [facility] [address] [address] 04/25/2024 08:10:04 04/25/2024 11:59:52 Essential hypertension 43222800 I10 BP is stable at home, better with Chronic go uty arthritis 89163664 M1A.0720 stable Erectile dysfunction 860 823793 F52.21 start on sildenafil [id number] MEKA JENSEN [facility] [address] [facility] [address] 06/18/2024 09:43:28 06/18/2024 11:47:23 Sleep apnea 32893140 G47.31 needs new CPAP machine, will require new test, sent in for new test and then will submit for new CPAP Acute sinusitis 47531481 J01.01 start on z benito and medrol [id number] MEKA JENSEN [facility] [address] [facility] [address] 10/03/2024 09:32:09 10/03/2024 13:37:32 Pain in right heel 8486061979 346770 M79.671 probs a bone spur given location and symptoms Strain of hamstring muscle 1663098125 04 S76.311A ?tendinopa thy vs strain vs def Pain in left foot 805388 9500 23242 M79.672 Health Concerns Section Related Observation LastModified by Organization Detai ls LastModified Time None Recorded Concern Status LastModified by Organization Details LastModified Time None Recorded Advance Directives Directive N: Payers Encounter Date Sequence Insurance Name Policy Number Policy Wynn Covered Member ID Wynn Member ID Guarantor Name 10/26/2023 1 [place] [employer] Javed Carr [id number] Javed Carr 10/26/2023 2 [place] [id number] Javed Carr [id number] Javed Carliner 04/09/2024 1 [place] [employer] Javed Hurtadoscher [id number] Javed Hurtadoscher 04/09/2024 2 [place] [id number] Javed Hurtadoscher [id number] Javed Hurtadoscher 04/25/2024 1 [place] [employer] Javed S Tauscher [id number] Javed Tauscher 04/25/2024 2 [place] [id number] Javed S Tauscher [id number] Javed Hurtadoscher 06/18/2024 1 [place] [employer] Javed S Tauscher [id number] Javed Tauscher 06/18/2024 2 [place] [id number] Javed S Tauscher [id number] Javed Hurtadoscher 10/03/2024 1 [place] [employer] Javed S Genesisscher [id number] Javed Tauscher 10/03/2024 2 [place] [id number] Javed Hurtadoscher [id number] Javed Carr Notes Date Note Type [...] pna three times patient has been eating hat cleaner, has not had a drink in months, [...] after CT and lab work MEKA JENSEN [address] [place] [address], [place], [address], [facility] 10/26/2023 09:24:55 04/09/20 24 [...] the results was negative MEKA JENSEN [address] [place], [address], [facility] 04/09/2024 10:38:23 04/25/20 24 text/htm l 6 mos f/u The patient is participating in this appointment via telemedicine communication with a phone call/video calling service ([email or web address])The patient consents to use of these platforms [...] there based on response MEKA JENSEN [address] [place], [address], [facility] 04/25/2024 11:51:54 06/18/20 24 text/htm l c/o [...] the results was negative MEKA JENSEN [address] [place], [address], [facility] 06/18/2024 11:13:55 10/04/19 25 [...] injury hamstrings feel tight MEKA JENSEN [address] [place], [address], [facility] 10/03/2024 09:57:45
--- OUTSIDE RECORDS SUMMARY | 2024-10-31 07:59 | XMS_ITS | Encounter Summary ---
Author Name [facility] [facility] Address [address] [place] [address] Care Team Providers Care C.O.D. Biller Name Role Phone ARNALDO JAUREGUI Primary Care [...] Wynn's Name Patient's Relationship to Policy Wynn [facility] MEDICARE [facility] MEDEX CORE Apr 01, 2021 [id number] DAMASO SCRUGGS PATIENT MEDICARE (WNR) MEDICARE (M) PART A Apr 01, 2021 PART A [id number] DAMASO SCRUGGS PATIENT MEDICARE (WNR) MEDICARE (M) PART B Apr 01, 2021 PART B [id number] DAMASO SCRUGGS PATIENT Selected Encounter This section includes the information on record at [place] for the Encounter. Date/Time Encounter Type Encounter [...] and adjustment of hearing aid GWENDOLYN DAMON [facility] Apr 19, 2024 08:10 AM SECONDARY Sensorineural hearing loss, bilateral GWENDOLYN DAMON [facility] Social History: Smoking Status (Most current) and Tobacco Use (All prior to encounter date) This section includes the most current, and the historical, smoking and tobacco- related health factors from the [place] facility where the Encounter took place. Current Smoking Status This section includes the most current smoking, or tobacco-related health factor, from the [place] facility where the Encounter took place. Date/Time Current Smoking Status Comment Facil ity Jan 11, 2019 09:58 AM [place]-TOBACCO QUIT 5 TO < 15 YRS [facility] Tobacco Use History This section includes a history of the smoking, or tobacco-related health factors, that were collected on or before the date of the Encounter. The data comes from the [place] facility where the Encounter took place. Date/Time Smoking Status/Tobacco Use Comment F acility Jan 11, 2019 09:58 AM [place]-TOBACCO QUIT 5 TO < 15 YRS [facility] December 20, 2017 01:12 PM QUIT TOBACCO USE > 7 YEARS AGO [facility] December 20, 2017 01:12 PM V1-QUIT TOBACCO US E > 1 YEAR AGO [facility] Apr 26, 2016 11:01 AM QUIT TOBACCO USE 1 -7 YEARS AGO [facility] Encounter Notes: All associated encounter notes This section contains the clinical notes associated to the Encounter. Date/Time Encounter Note(s) Provider Source Apr 19, 2024 07:42 AM AUDIOLOGY E & M NO TE: [facility] TITLE: AUDIOLOGY CLINIC STANDARD TITLE: AUDIOLOGY E & M NOTE DATE OF NOTE: APR 19, 2024@07:42 ENTRY DATE: APR 19, 2024@07:42:20 AUTHOR: GWENDOLYN DAMON EXP COSIGNER: URGENCY: STATUS: COMPLETED Hines has a history of bilateral sensorineural hearing [...] sent in for repair, will ship to [place] via [facility]. He will use spare hearing aids in the meantime. /shayla/ Dora GREGORIO, [facility]-A STAFF SHEET TURNER Signed: 04/19/2024 08:12 GWENDOLYN DAMON [facility]
[2024-10-31 13:40] LABS: Alanine Aminotransferase 22 U/L (0-40); Albumin Level 3.7 g/dL (3.5-5.0); Alkaline Phosphatase 10 U/L (39-117); Anion Gap 10 (12-20); Aspartate Amino Transferase 33 U/L (5-37); Bilirubin Total 1.4 mg/dL (0.0-1.0); Blood Urea Nitrogen 20 mg/dL (9-16); Carbon Dioxide 27 mmol/L (22-29); Chloride 107 mmol/L (96-108); Estimated Glomerular Filt Rate > 60; Glucose Random 96 mg/dL (60-115); Potassium 4.2 mmol/L (3.3-5.1); Sodium 140 mmol/L (135-145); Total Protein 6.5 g/dL (6.5-8.0); Uric Acid 5.2 mg/dL (3.4-7.0)
== END 2024-10-31 07:55 | disposition home or self-care (01) ==
LOC: HO.MANLDS 07:54
PROVIDERS: Visit Provider Physician Assistant
DX: M1A.0720 Idiopathic chronic gout, left ankle and foot, without tophus (tophi) (principal)
CPT/HCPCS: 36415; 80053; 84550